=== PATIENT | male | born 1980 | race Two or more races ===

== ENCOUNTER 2018-09-06 21:04 | Emergency (ER) | payer OTHER ==
[~2018-09-06] VITALS: Ht 170.2 cm; Wt 86.2 kg
[2018-09-07] MEDS ORDERED: VISTARIL25 MG PO (01:58)
== END 2018-09-07 02:04 | disposition home or self-care (01) ==
LOC: ER 21:04
DX: F06.4 Anxiety disorder due to known physiological condition (principal)